=== PATIENT | male | born 1955 | race Caucasian/White ===

== ENCOUNTER 2016-11-20 04:04 | Emergency (ER) | payer MEDICAID ==
[~2016-11-20] VITALS: Ht 185.4 cm; Wt 86.9 kg
[~2016-11-20 04:04] MED LIST: ALPR0.5T6 PO; BUTA1CAP57 PO; DIAZ5TAB PO; LEVO75TA5 PO; MV M PO; UBID100C11 PO
[2016-11-20] MEDS ORDERED: DIPHENHYDRAMINE 50 MG/ML, 1ML ONE (04:30)
[2016-11-20] MEDS ORDERED: PROCHLORPERAZINE 5 MG/ML, 2ML IM ONE (04:30)
[2016-11-20] MEDS ORDERED: KETOROLAC 30 MG/1 ML ONE (04:30)
[2016-11-20] MEDS ORDERED: LORazepam 1MG TABLET ONE (04:30)
[2016-11-20] MEDS ORDERED: LORazepam 1MG TABLET PO ONE (04:30)
[2016-11-20] MEDS ORDERED: KETOROLAC 30 MG/1 ML IM ONE (04:30)
[2016-11-20] MEDS ORDERED: DIPHENHYDRAMINE 50 MG/ML, 1ML IM ONE (04:30)
[2016-11-20] MEDS ORDERED: PROCHLORPERAZINE 5 MG/ML, 2ML ONE (04:31)
[2016-11-20 05:16] VITALS: BP 142/95
== END 2016-11-20 05:18 | disposition home or self-care (01) ==
LOC: ED 05:10
DX: G43.009 Migraine without aura, not intractable, without status migrainosus (principal); I10 Essential (primary) hypertension; F43.10 Post-traumatic stress disorder, unspecified
CPT/HCPCS: 93005; 96372; 99284; J0780; J1200; J1885

== ENCOUNTER 2016-12-16 20:58 | Emergency (ER) | payer MEDICAID ==
[~2016-12-16] VITALS: Ht 185.4 cm; Wt 90.0 kg
[~2016-12-16 20:58] MED LIST changes: -UBID100C11 PO; +UBID100C41 PO
[2016-12-16] MEDS ORDERED: METOCLOPRAMIDE 5 MG/ML, 2ML IM ONE (21:30)
[2016-12-16] MEDS ORDERED: KETOROLAC 30 MG/1 ML IM ONE (21:30)
[2016-12-16] MEDS ORDERED: KETOROLAC 30 MG/1 ML ONE (21:37)
[2016-12-16] MEDS ORDERED: METOCLOPRAMIDE 5 MG/ML, 2ML ONE (21:37)
[2016-12-16 22:06] VITALS: BP 146/98
== END 2016-12-16 22:11 | disposition home or self-care (01) ==
LOC: ED 21:45
DX: R51 Headache (principal); G43.909 Migraine, unspecified, not intractable, without status migrainosus; I10 Essential (primary) hypertension; F43.10 Post-traumatic stress disorder, unspecified; Z59.0 Homelessness
CPT/HCPCS: 96372; 99284; J1885; J2765

== ENCOUNTER 2016-12-21 19:22 | Emergency (ER) | payer MEDICAID ==
[~2016-12-21] VITALS: Ht 185.4 cm; Wt 84.9 kg
[2016-12-21 19:24] VITALS: BP 191/118
== END 2016-12-21 19:53 | disposition left against medical advice (07) ==
LOC: ED 19:47
DX: Z53.21 Procedure and treatment not carried out due to patient leaving prior to being seen by health care provider (principal)

== ENCOUNTER 2016-12-24 23:38 | Emergency (ER) | payer MEDICAID ==
[~2016-12-24] VITALS: Ht 185.4 cm; Wt 86.7 kg
[2016-12-24 23:40] VITALS: BP 174/109
== END 2016-12-25 02:14 | disposition left against medical advice (07) ==
LOC: ED 12-25 02:08
DX: R51 Headache (principal); S90.822A Blister (nonthermal), left foot, initial encounter; S90.821A Blister (nonthermal), right foot, initial encounter; Z53.21 Procedure and treatment not carried out due to patient leaving prior to being seen by health care provider; X58.XXXA Exposure to other specified factors, initial encounter; Y93.89 Activity, other specified; Y99.8 Other external cause status; Y92.89 Other specified places as the place of occurrence of the external cause

== ENCOUNTER 2016-12-27 11:12 | Emergency (ER) | payer MEDICAID ==
[~2016-12-27] VITALS: Ht 185.4 cm; Wt 54.5 kg
[2016-12-27] MEDS ORDERED: KETOROLAC 30 MG/1 ML IM ONE (12:00)
[2016-12-27] MEDS ORDERED: PROMETHAZINE 25 MG/ML, 1ML IM ONE (12:00)
[2016-12-27] MEDS ORDERED: KETOROLAC 30 MG/1 ML ONE (12:35)
[2016-12-27] MEDS ORDERED: PROMETHAZINE 25 MG/ML, 1ML ONE (12:35)
[2016-12-27 13:45] VITALS: BP 140/75
== END 2016-12-27 13:47 | disposition home or self-care (01) ==
LOC: ED 11:29
DX: B35.3 Tinea pedis (principal); Z59.0 Homelessness; I10 Essential (primary) hypertension
CPT/HCPCS: 96372; 99284; J1885; J2550

== ENCOUNTER 2016-12-30 08:48 | Emergency (ER) | payer MEDICAID ==
[~2016-12-30] VITALS: Ht 185.4 cm; Wt 85.0 kg
[2016-12-30] MEDS ORDERED: ACETAMINOPHEN 325 MG TABLET PO ONE (09:30)
[2016-12-30] MEDS ORDERED: ACETAMINOPHEN 325 MG TABLET ONE (09:39)
[2016-12-30 10:05] VITALS: BP 158/101
== END 2016-12-30 10:07 | disposition home or self-care (01) ==
LOC: ED 09:28
DX: S90.822A Blister (nonthermal), left foot, initial encounter (principal); S90.821A Blister (nonthermal), right foot, initial encounter; T20.10XA Burn of first degree of head, face, and neck, unspecified site, initial encounter; T31.0 Burns involving less than 10% of body surface; I10 Essential (primary) hypertension; F43.10 Post-traumatic stress disorder, unspecified; Z59.0 Homelessness; X08.8XXA Exposure to other specified smoke, fire and flames, initial encounter; Y93.89 Activity, other specified; Y92.89 Other specified places as the place of occurrence of the external cause; Y99.8 Other external cause status
CPT/HCPCS: 99283

== ENCOUNTER 2016-12-30 17:39 | Emergency (ER) | payer MEDICAID ==
[~2016-12-30] VITALS: Ht 185.4 cm; Wt 86.4 kg
[2016-12-30 17:41] VITALS: BP 176/99
[2016-12-30] MEDS ORDERED: KETOROLAC 30 MG/1 ML ONE (18:25)
[2016-12-30] MEDS ORDERED: PROCHLORPERAZINE 5 MG/ML, 2ML ONE (18:25)
[2016-12-30] MEDS ORDERED: DIPHENHYDRAMINE 50 MG/ML, 1ML ONE (18:25)
[2016-12-30] MEDS ORDERED: BUTALB/APAP/CAFFEINE 50MG/325MG/40MG PO ONE (18:30)
[2016-12-30] MEDS ORDERED: DIPHENHYDRAMINE 50 MG/ML, 1ML IVPush ONE (18:30)
[2016-12-30] MEDS ORDERED: SODIUM CHLORIDE FLUSH 10ML SYR IVF ONE (18:30)
[2016-12-30] MEDS ORDERED: PROCHLORPERAZINE 5 MG/ML, 2ML IVPush ONE (18:30)
[2016-12-30] MEDS ORDERED: KETOROLAC 30 MG/1 ML IVPush ONE (18:30)
[2016-12-30] MEDS ORDERED: SODIUM CHLORIDE 0.9% 1,000ML IVBOLUS ONE (18:30)
== END 2016-12-30 19:31 | disposition left against medical advice (07) ==
LOC: ED 19:25
DX: G43.019 Migraine without aura, intractable, without status migrainosus (principal); Z87.891 Personal history of nicotine dependence; E03.9 Hypothyroidism, unspecified; F90.9 Attention-deficit hyperactivity disorder, unspecified type; I10 Essential (primary) hypertension; F43.10 Post-traumatic stress disorder, unspecified
CPT/HCPCS: 96361; 96374; 96375; 99284; J0780; J1200; J1885; J7030

== ENCOUNTER 2017-01-01 15:58 | Emergency (ER) | payer MEDICAID ==
[~2017-01-01] VITALS: Ht 185.4 cm; Wt 88.6 kg
[2017-01-01 16:12] VITALS: BP 164/96
[2017-01-01] MEDS ORDERED: BACITRACIN ZINC OINT 500U/GM, 0.9 GM ONE (17:28)
== END 2017-01-01 17:28 | disposition home or self-care (01) ==
LOC: ED 16:00
DX: Z48.01 Encounter for change or removal of surgical wound dressing (principal); E03.9 Hypothyroidism, unspecified; I10 Essential (primary) hypertension; F43.10 Post-traumatic stress disorder, unspecified; G43.909 Migraine, unspecified, not intractable, without status migrainosus
CPT/HCPCS: 99281

== ENCOUNTER 2017-01-01 17:30 | Emergency (ER) | payer MEDICAID ==
[~2017-01-01] VITALS: Ht 185.4 cm; Wt 88.1 kg
[2017-01-01 17:32] VITALS: BP 157/92
== END 2017-01-01 17:56 | disposition home or self-care (01) ==
LOC: ED 17:46
DX: G43.909 Migraine, unspecified, not intractable, without status migrainosus (principal); E03.9 Hypothyroidism, unspecified; I10 Essential (primary) hypertension; F43.10 Post-traumatic stress disorder, unspecified
CPT/HCPCS: 99283

== ENCOUNTER 2017-01-04 13:00 | Emergency (ER) | payer MEDICAID ==
[~2017-01-04] VITALS: Ht 185.4 cm; Wt 83.7 kg
[2017-01-04 13:09] VITALS: BP 166/101
[2017-01-04] MEDS ORDERED: BUTALB/APAP/CAFFEINE 50MG/325MG/40MG PO ONE (14:00)
[2017-01-04] MEDS ORDERED: BUTALBIT/ACETAMIN/CAFF/CODEINE CAPSULE ONE (14:02)
== END 2017-01-04 14:23 | disposition home or self-care (01) ==
LOC: ED 14:00
DX: G43.909 Migraine, unspecified, not intractable, without status migrainosus (principal); E03.9 Hypothyroidism, unspecified; I10 Essential (primary) hypertension; F43.10 Post-traumatic stress disorder, unspecified
CPT/HCPCS: 99283

== ENCOUNTER 2017-01-05 05:50 | Emergency (ER) | payer MEDICAID ==
[~2017-01-05] VITALS: Ht 185.4 cm; Wt 83.3 kg
[2017-01-05 05:51] VITALS: BP 165/98
== END 2017-01-05 06:21 ==
LOC: ED 06:00
DX: B35.3 Tinea pedis (principal); L84 Corns and callosities; E03.9 Hypothyroidism, unspecified; I10 Essential (primary) hypertension; F43.10 Post-traumatic stress disorder, unspecified
CPT/HCPCS: 99283

== ENCOUNTER 2017-01-18 11:51 | Emergency (ER) | payer MEDICAID ==
[~2017-01-18] VITALS: Ht 185.4 cm; Wt 84.6 kg
[2017-01-18 11:52] VITALS: BP 165/98
[2017-01-18] MEDS ORDERED: DIPHENHYDRAMINE 50 MG/ML, 1ML IM ONE (13:00)
[2017-01-18] MEDS ORDERED: METOCLOPRAMIDE 5 MG/ML, 2ML IM PRN (13:00)
[2017-01-18] MEDS ORDERED: BUTALB/APAP/CAFFEINE 50MG/325MG/40MG PO ONE (14:00)
== END 2017-01-18 13:09 | disposition left against medical advice (07) ==
LOC: ED 13:03
DX: G43.909 Migraine, unspecified, not intractable, without status migrainosus (principal); E03.9 Hypothyroidism, unspecified; I10 Essential (primary) hypertension; F43.10 Post-traumatic stress disorder, unspecified
CPT/HCPCS: 99281

== ENCOUNTER 2017-01-28 10:40 | Emergency (ER) | payer MEDICAID ==
[~2017-01-28] VITALS: Ht 185.4 cm; Wt 81.3 kg
[2017-01-28 10:45] VITALS: BP 120/83
[2017-01-28] MEDS ORDERED: KETOROLAC 30 MG/1 ML IVPush ONE (11:00)
[2017-01-28] MEDS ORDERED: PROCHLORPERAZINE 5 MG/ML, 2ML IVPush ONE (11:00)
[2017-01-28] MEDS ORDERED: ONDANSETRON 2MG/ML, 2ML IVPush ONE (11:00)
[2017-01-28] MEDS ORDERED: DIPHENHYDRAMINE 50 MG/ML, 1ML IVPush ONE (11:00)
[2017-01-28] MEDS ORDERED: SODIUM CHLORIDE 0.9% 1,000ML IVBOLUS ONE (11:00)
[2017-01-28] MEDS ORDERED: SODIUM CHLORIDE FLUSH 10ML SYR IVF ONE (11:00)
[2017-01-28] MEDS ORDERED: ONDANSETRON ODT 4 MG ONE (11:18)
[2017-01-28] MEDS ORDERED: KETOROLAC 30 MG/1 ML ONE (11:19)
[2017-01-28] MEDS ORDERED: DIPHENHYDRAMINE 25 MG CAPSULE ONE (11:19)
[2017-01-28] MEDS ORDERED: ONDANSETRON ODT 4 MG PO ONE (11:30)
[2017-01-28] MEDS ORDERED: KETOROLAC 30 MG/1 ML IM ONE (11:30)
[2017-01-28] MEDS ORDERED: DIPHENHYDRAMINE 25 MG CAPSULE PO ONE (11:30)
== END 2017-01-28 11:56 | disposition home or self-care (01) ==
LOC: ED 11:14
DX: G43.019 Migraine without aura, intractable, without status migrainosus (principal)
CPT/HCPCS: 96372; 99283; J1885; Q0162; Q0163

== ENCOUNTER 2017-03-26 05:26 | Emergency (ER) | payer MEDICAID ==
[~2017-03-26] VITALS: Ht 185.4 cm; Wt 84.8 kg
[2017-03-26] MEDS ORDERED: DIPHENHYDRAMINE 25 MG CAPSULE ONE (05:47)
[2017-03-26] MEDS ORDERED: KETOROLAC 30 MG/1 ML ONE (05:47)
[2017-03-26] MEDS ORDERED: ONDANSETRON ODT 4 MG ONE (05:47)
[2017-03-26] MEDS ORDERED: ONDANSETRON ODT 4 MG PO ONE (06:00)
[2017-03-26] MEDS ORDERED: DIPHENHYDRAMINE 25 MG CAPSULE PO ONE (06:00)
[2017-03-26] MEDS ORDERED: KETOROLAC 30 MG/1 ML IM ONE (06:00)
[2017-03-26] MEDS ORDERED: BUTALB/APAP/CAFFEINE 50MG/325MG/40MG PO ONE (06:30)
[2017-03-26 07:21] VITALS: BP 155/103
== END 2017-03-26 07:23 | disposition home or self-care (01) ==
LOC: ED 06:18
DX: G43.909 Migraine, unspecified, not intractable, without status migrainosus (principal); I10 Essential (primary) hypertension; E03.9 Hypothyroidism, unspecified; F43.10 Post-traumatic stress disorder, unspecified
CPT/HCPCS: 96372; 99284; J1885; Q0162; Q0163

== ENCOUNTER 2017-04-02 06:16 | Emergency (ER) | payer MEDICAID ==
[~2017-04-02] VITALS: Ht 185.4 cm; Wt 83.0 kg
[2017-04-02 06:18] VITALS: BP 129/81
== END 2017-04-02 07:16 | disposition left against medical advice (07) ==
LOC: ED 07:10
DX: R51 Headache (principal); Z53.21 Procedure and treatment not carried out due to patient leaving prior to being seen by health care provider

== ENCOUNTER 2017-04-22 08:01 | Emergency (ER) | payer MEDICAID ==
[~2017-04-22] VITALS: Ht 185.4 cm; Wt 85.3 kg
[2017-04-22] MEDS ORDERED: LISI2.5T PO (08:25)
[2017-04-22 09:14] VITALS: BP 136/83
== END 2017-04-22 09:46 | disposition home or self-care (01) ==
LOC: ED 09:13
DX: S39.012A Strain of muscle, fascia and tendon of lower back, initial encounter (principal); M54.42 Lumbago with sciatica, left side; E03.9 Hypothyroidism, unspecified; F43.10 Post-traumatic stress disorder, unspecified; X58.XXXA Exposure to other specified factors, initial encounter; Y93.89 Activity, other specified; Y92.89 Other specified places as the place of occurrence of the external cause; Y99.9 Unspecified external cause status
CPT/HCPCS: 99283

== ENCOUNTER 2017-05-03 10:05 | Emergency (ER) | payer MEDICAID ==
[~2017-05-03] VITALS: Ht 185.4 cm; Wt 85.3 kg
[~2017-05-03 10:05] MED LIST changes: +LISI2.5T PO
[2017-05-03 10:07] VITALS: BP 157/97
[2017-05-03] MEDS ORDERED: KETOROLAC 30 MG/1 ML IM ONE (11:00)
[2017-05-03] MEDS ORDERED: KETOROLAC 30 MG/1 ML ONE (11:36)
== END 2017-05-03 11:45 | disposition home or self-care (01) ==
LOC: ED 11:27
DX: G43.009 Migraine without aura, not intractable, without status migrainosus (principal); E03.9 Hypothyroidism, unspecified; I10 Essential (primary) hypertension; F43.10 Post-traumatic stress disorder, unspecified; Z76.0 Encounter for issue of repeat prescription
CPT/HCPCS: 96372; 99283; J1885

== ENCOUNTER 2017-07-13 08:24 | Emergency (ER) | payer MEDICAID ==
[~2017-07-13] VITALS: Ht 185.4 cm; Wt 89.4 kg
[2017-07-13 08:50] VITALS: BP 129/95
[2017-07-13] MEDS ORDERED: BUTALB/APAP/CAFFEINE 50MG/325MG/40MG PO ONE (09:30)
== END 2017-07-13 09:52 | disposition left against medical advice (07) ==
LOC: ED 09:46
DX: G43.009 Migraine without aura, not intractable, without status migrainosus (principal); Z72.9 Problem related to lifestyle, unspecified; E03.9 Hypothyroidism, unspecified; I10 Essential (primary) hypertension; F43.10 Post-traumatic stress disorder, unspecified
CPT/HCPCS: 99283